=== PATIENT | male | born 1940 | race Caucasian/White ===

== ENCOUNTER 2016-09-20 23:28 | Emergency (ER) | payer MEDICARE, OTHER ==
[~2016-09-20] VITALS: Ht 188 cm; Wt 85.8 kg
[~2016-09-20 23:28] MED LIST: ASCO-296 PO; CHOL200026 PO; GLUC-147 PO; HYDR-3989 PO; LISI10TA7 PO; MAGN200T3 PO; MELA1TAB9 PO; MULT-806 PO; NITR0.4T28 SL; THIO50CA PO; VITA1CAP29 PO; ZINC50TA4 PO
--- OUTSIDE RECORDS SUMMARY | 2016-09-20 23:32 | XMS REPORT | Referral Summary ---
Author Author [facility], Audiology Organization [facility] Address Unknown Phone Unavailable Care Team Providers Care Machine Feeder Name Role Phone Robert Murguia Primary Care Physician [phone] Encounter [facility] [id number] Date(s): 01/14/15 - 01/14/15 [facility] [address] Audiology [address] [place] [address] Discharge Diagnosis: Mixed hearing loss, unilateral Discharge Diagnosis: Sensorineural hearing loss, unilateral Discharge Diagnosis: Eustachian tube dysfunction Discharge Disposition: 01-Home or Self Care Attending Physician: Padmini Daniels Admitting Physician: Padmini Daniels Vital Signs No data available for this section Problem List No data available for this section Allergies, Adverse Reactions, Alerts No Known Medication Allergies Medications lisinopril 10 mg oral tablet 10 mg 1 tabs, Oral, Daily, # 30 tabs, 0 Refill(s) Start Date: 01/14/15 Status: Ordered Results No data available for this section Immunizations No data available for this section Procedures Procedure Date Related Diagnosis Body Site Skin cancer Social History Social History Type Response Smoking Status Never smoker Assessment and Plan No data available for this section
--- OUTSIDE RECORDS SUMMARY | 2016-09-20 23:32 | XMS REPORT | Continuity of Care Document ---
Author Author [facility] Organization [facility] Address Unknown Phone Unavailable Support Name Relationship Address Phone TERE AVITIA MD Caregiver [address] [place] [phone] JUAN GARCIA MD Caregiver [address] [place] [phone] KATHRYN KUMAR Next Of Kin [address] [place] [address] Insurance Providers Payer Name Policy Number Subscriber Name Relationship Medicare [id number] Manny Kumar 18 Self Other A Insurance [id number] Manny Kumar 18 Self Advance Directives Directive Response Recorded Date/Time Advanced Directives Type None 08/23/14 1:23pm Problems Medical Problems Problem Onset Date Status Headache Unknown Active Elevated blood pressure Unknown Active Headache Unknown Active Medications Medication Dose Route Sig Days/Qty Instructions Order Date Discontinued Date Status Aspirin 81 Mg PO DAILY 11/04/12 12/27/12 Discontinued Fish Oil/Granby-3 Fatty Acids 1 Cap PO DAILY 12/27/12 Active Multivitamins 1 Tab PO DAILY 12/27/12 Active Nitroglycerin 0.4 Mg SL NEEDED 12/27/12 Active Glucosamine/D3/Boswellia Malika 1 Each PO DAILY 12/27/12 Active Ascorbic Acid 1,000 Mg PO DAILY 12/27/12 Active Magnesium Unknown Dose PO DAILY 12/30/12 Active Cholecalciferol (Vitamin D3) 5,000 Unit PO DAILY 12/30/12 Active Vitamin T44-Ovogdqnkv Factor 500 Mcg PO DAILY 12/30/12 Active Thioctic Acid 100 Mg PO DAILY 12/30/12 Active Lisinopril 10 Mg PO DAILY 60 Days 08/23/14 Active Pullman Oil/Granby-3 Fatty Acids 1 Cap PO DAILY 08/23/14 Active Social History Social History Problem Response Recorded Date/Time Hx Substance Use No 08/23/2014 1:47pm Hx Alcohol Use No 08/23/2014 1:47pm Has the pt used tobacco in the last 12 months No 12/27/2012 1:12pm Query Response Start Date Stop Date Smoking Status Never smoker Hospital Discharge Instructions No hospital discharge instructions. Plan of Care No plan of care. Functional Status Query Response Date Recorded Physical Hygiene Self August 23, 2014 1:47pm Disabilities Visual August 23, 2014 1:47pm Devices Used Glasses August 23, 2014 1:47pm Dressing Self August 23, 2014 1:47pm Ambulation Self August 23, 2014 1:47pm Diet Self August 23, 2014 1:47pm Mental Status Alert Oriented August 23, 2014 1:47pm Disabilities Visual August 23, 2014 1:47pm Devices Used Glasses August 23, 2014 1:47pm Physical Hygiene Self August 23, 2014 1:47pm Dressing Self August 23, 2014 1:47pm Ambulation Self August 23, 2014 1:47pm Diet Self August 23, 2014 1:47pm Allergies, Adverse Reactions, Alerts Allergen Type Severity Reaction Status Last Updated Iodinated Contrast Media - IV Dye Allergy Unknown HEADACHE, BP CHANGES Active 08/23/14 Immunizations Name Given Type Hx Influenza Vaccination No Historical Hx Pneumococcal Vaccination No Historical Hx Influenza Vaccination No Historical Vital Signs Acute Vital Signs Vital Response Date/Time Temperature (Fahrenheit) 96.6 deg F (96.8 - 99.1) Temperature (Calculated Celsius) 35.65349 degrees C (36.0 - 37.3) Pulse Rate (adult) 60 bpm (60 - 100) Respiratory Rate 20 breaths/min (10 - 20) O2 Sat by Pulse Oximetry 97 % (90 - 100) Blood Pressure 138/64 mm Hg Height 6 ft 2 in Weight 192 lb Body Mass Index 24.0 kg/m^2 Results Test Source Date Result Interp. Ref. Range Comments Activated Partial Thromboplast Time March 12, 2009 7:35am 28.5 SEC N 25-36 Alanine Aminotransferase (ALT/SGPT) August 23, 2014 2:05pm 31 U/L N 21 -72 Albumin August 23, 2014 2:05pm 4.3 G/DL N 3.5-5.0 Albumin/Globulin Ratio August 23, 2014 2:05pm 1.4 RATIO N 1.1-2.2 Alkaline Phosphatase August 23, 2014 2:05pm 74 U/L N 38-126 Anion Gap August 23, 2014 2:05pm 10 MEQ/L N 5-15 Aspartate Amino Transf (AST/SGOT) August 23, 2014 2:05pm 23 U/L N 17- 59 BUN/Creatinine Ratio August 23, 2014 2:05pm 19 RATIO N 6-26 Basophils # (Auto) August 23, 2014 2:05pm 0.0 T/MM3 N 0-0.2 Basophils (%) (Auto) August 23, 2014 2:05pm 0.5 % N 0-2 Blood Urea Nitrogen August 23, 2014 2:05pm 21.0 MG/DL H 9-20 Calcium Level August 23, 2014 2:05pm 9.5 MG/DL N 8.4-10.2 Calculated Osmolality August 23, 2014 2:05pm 276 MOSM/KG N 261-280 Carbon Dioxide Level August 23, 2014 2:05pm 28 MEQ/L N 22-30 Carboxyhemoglobin November 04, 2012 4:40am 0.0 % L 0.5-1.5 NORMAL RANGESNONSMOKERS:0.5-1.5% SMOKERS, 1-2 PKS/D 4-5% SMOKERS, >2 PKS/D 8/9% TOXIC: >20% Chemistry Specimen Hemolysis August 23, 2014 2:05pm < 15 0-25 0-25 : No Hemolysis.26-70: Slight Hemolysis - can falsely elevate K and Urine Protein. 71-285: Moderate Hemolysis - can falsely elevate K, Troponin I, CA 19-9, PTH, CSF GLucose, and Urine Protein, and can falsely decrease Phenytoin. 286-999: Gross Hemolysis - can falsely elevate K, Troponin I, CA 19-9, PTH, CSF Glucose, and Urine Protine, and can falsely decrease Phenytoin. Recommend specimen recollection. Chloride Level August 23, 2014 2:05pm 104 MEQ/L N 98-107 Cholesterol Level March 12, 2009 7:35am 176 MG/DL N 132-199 Cholesterol/HDL Ratio March 12, 2009 7:35am 2.0 RATIO N 0-5.0 Creatinine August 23, 2014 2:05pm 1.1 MG/DL N 0.8-1.5 EKG March 12, 2009 7:40am Complete - Eosinophils # (Auto) August 23, 2014 2:05pm 0.1 T/MM3 N 0-0.5 Eosinophils (%) (Auto) August 23, 2014 2:05pm 1.1 % N 0-4 Globulin August 23, 2014 2:05pm 3.1 G/DL N 2.4-3.6 Glomerular Filtration Rate Calc August 23, 2014 2:05pm 65 - Glucose Level August 23, 2014 2:05pm 93 MG/DL N 75-110 HDL Cholesterol Direct March 12, 2009 7:35am 63 MG/DL H 40-60 Hematocrit August 23, 2014 2:05pm 42.2 % N 41-53 Hemoglobin August 23, 2014 2:05pm 14.5 GM/DL N 13.5-17.5 Icterus Index August 23, 2014 2:05pm < 2 0-7 Immature Granulocyte # (Auto) August 23, 2014 2:05pm 0.01 T/MM3 N 0.00 -0.03 Immature Granulocyte % (Auto) August 23, 2014 2:05pm 0.2 % N 0.0-0.5 LDL Cholesterol, Calculated March 12, 2009 7:35am 100.4 N 66-159 Lab Scanned Report December 26, 2012 11:58pm LAB TEST FORM REQUEST [id number] - Lymphocytes # (Auto) August 23, 2014 2:05pm 1.7 T/MM3 N 1-4.8 Lymphocytes (%) (Auto) August 23, 2014 2:05pm 27.9 % N 23-45 Mean Corpuscular Hemoglobin August 23, 2014 2:05pm 32.2 UUG N 26-34 Mean Corpuscular Hemoglobin Concent August 23, 2014 2:05pm 34.4 GM/DL N 31-37 Mean Corpuscular Volume August 23, 2014 2:05pm 93.6 UM3 N 80-100 Mean Platelet Volume August 23, 2014 2:05pm 10.0 UM3 N 9.4-12.4 Monocytes # (Auto) August 23, 2014 2:05pm 0.6 T/MM3 N 0-0.8 Monocytes (%) (Auto) August 23, 2014 2:05pm 10.4 % H 0-9.0 Neutrophils # (Auto) August 23, 2014 2:05pm 3.7 T/MM3 N 1.8-7.7 Neutrophils (%) (Auto) August 23, 2014 2:05pm 59.9 % N 33-66 Platelet Count August 23, 2014 2:05pm 185 T/MM3 N 130-400 Potassium Level August 23, 2014 2:05pm 3.9 MEQ/L N 3.6-5 Prothromb Time International Ratio March 12, 2009 7:35am 0.88 N 0.79 -1.23 THERAPUTIC RANGE=2.00-3.00 FOR ANTI-THROMBOSIS THERAPUTIC RANGE=2.50- 3.50 FOR IMPLANTED VALVE RDW Standard Deviation August 23, 2014 2:05pm 42.8 FL N 36.9-50.2 Red Blood Count August 23, 2014 2:05pm 4.51 M/MM3 N 4.50-5.90 Sodium Level August 23, 2014 2:05pm 142 MEQ/L N 134-144 Total Bilirubin August 23, 2014 2:05pm 0.50 MG/DL N 0.20-1.30 Total Protein August 23, 2014 2:05pm 7.4 G/DL N 6.3-8.2 Triglycerides Level March 12, 2009 7:35am 63 MG/DL N 40-160 Troponin I 2012 12:53pm < 0.012 ng/ml 0-0.12 FAX TO [phone] Turbidity August 23, 2014 2:05pm < 20 0-20 VLDL Cholesterol March 12, 2009 7:35am 12.6 MG/DL N 0-28 White Blood Count August 23, 2014 2:05pm 6.1 T/MM3 N 4.5-11.0 Procedures No known history of procedures. Encounters Encounter Location Date/Time Departed Emergency Room [facility] 08/23/14 1:19pm Recent Diagnosis
--- OUTSIDE RECORDS SUMMARY | 2016-09-20 23:32 | XMS REPORT | Referral Summary ---
Author Author [facility], Otolaryngology Organization [facility] Address Unknown Phone Unavailable Care Team Providers Care Handle Machine Operator Name Role Phone ShantalRobert Primary Care Physician [phone] Encounter [facility] [id number] Date(s): 08/02/15 - 08/02/15 [facility] [address] Otol[facility]ology [address] [address] Discharge Diagnosis: Bilateral sensorineural hearing loss Discharge Diagnosis: History of Eustachian tube dysfunction Discharge Disposition: 01-Home or Self Care Attending Physician: Macario Rodriguez MD Admitting Physician: Macario Rodriguez MD Vital Signs No data available for this [...] Smoking Status Never smoker Assessment and Plan Extracted from: Title: Office Visit Note Author: Macario Rodriguez MD Date: 08/02/15 Assessment/Plan 1.History of Eustachian tube dysfunction Left tympanostomy tube remains in position and is patent. Tube could be rechecked in 4-6 months. Ordered: Office Visit Level 3 Est 98811 2.Bilateral sensorineural hearing loss Patient would benefit from trial of amplification but is not interested atthis time. Ordered: Office Visit Level 3 Est 73390
--- OUTSIDE RECORDS SUMMARY | 2016-09-20 23:32 | XMS REPORT | Referral Summary ---
Author Author [facility] Organization [facility] Address Unknown Phone Unavailable Care Team Providers Care Port Steward Name Role Phone Robert Murguia Primary Care Physician [phone] Encounter [facility] [id number] Date(s): 01/29/15 - 01/29/15 [facility] [address] Otol[facility]ology [address] [place] [address] Discharge Diagnosis: ETD (eustachian tube dysfunction) Discharge Diagnosis: Bilateral sensorineural hearing loss Discharge Disposition: 01-Home or Self Care Attending Physician: Salome Alston Admitting Physician: Salome Alston Vital Signs No data available for this [...]
--- OUTSIDE RECORDS SUMMARY | 2016-09-20 23:33 | XMS REPORT | Continuity of Care Document ---
Author Author [facility] Organization [facility] Address Unknown Phone Unavailable Allergies Active Description Code Type Severity Reaction Onset Reported/Identified Relationship to Patient Clinical Status Yes No Known Medication Allergies NKMA N/A N/A 01/14/2015 Medications Problems Procedures Results Encounters ACCT No. Visit Date/Time Discharge Status Pt. Type Provider Facility Loc./Unit Complaint [id number] 01/29/2015 14:19:00 2014 23:59:00 DIS Outpatient Salome Alston Via [facility] ENT RCK EARS [id number] 01/14/2015 15:28:00 2014 23:59:00 DIS Outpatient Padmini Daniels Via [facility] Audio Padmini - Medicare - Jennifer [id number] 01/14/2015 12:37:00 2014 23:59:00 DIS Outpatient Macario Rodriguez Via [facility] ENT EAR ACHES
--- OUTSIDE RECORDS SUMMARY | 2016-09-20 23:33 | XMS REPORT | Referral Summary ---
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
--- OUTSIDE RECORDS SUMMARY | 2016-09-20 23:33 | XMS REPORT | Referral Summary ---
Author Author [facility] Organization [facility] Address Unknown Phone Unavailable Care Team Providers Care Wheat Shipper Name Role Phone Robert Murguia Primary Care Physician [phone] Encounter [facility] [id number] Date(s): 01/14/15 - 01/14/15 [facility] [address] Otol[facility]ology [address] [place] [address] Discharge Diagnosis: Bilateral sensorineural hearing loss Discharge Diagnosis: Dysfunction of left Eustachian tube Discharge Disposition: 01-Home or Self Care Attending Physician: Macario Rodriguez MD Admitting Physician: Macario Rodriguez MD Referring Physician: Saran Murguia MD Vital Signs Most recent to 1 oldest [Reference Range]: Temperature Tympanic 36.7 degC [36.6-38.1 degC] (01/14/15 1:13 PM) Problem List No data available for this section Allergies, Adverse Reactions, Alerts No Known Medication Allergies Medications lisinopril 10 mg oral tablet 10 mg 1 tabs, Oral, Daily, # 30 tabs, 0 Refill(s) Start Date: 01/14/15 Status: Ordered Results No data available for this section Immunizations No data available for this section Procedures Procedure Date Related Diagnosis Body Site Laryngoscopy, flexible fiberoptic; diagnostic 01/14/15 Laryngoscopy, flexible fiberoptic; diagnostic 01/14/15 Laryngoscopy, flexible fiberoptic; diagnostic 01/14/15 Tympanostomy (requiring insertion of 01/14/15 ventilating tube), local or topical anesthesia.. Tympanostomy (requiring insertion of 01/14/15 ventilating tube), local or topical anesthesia.. Tympanostomy (requiring insertion of 01/14/15 ventilating tube), local or topical anesthesia.. Skin cancer Social History Social History Type Response Smoking Status Never smoker Assessment and Plan Extracted from: Title: Office Visit Note Author: Macario Rodriguez MD Date: 01/14/15 Assessment/Plan 1.Bilateral sensorineural hearing loss Patient does have significant bilateral sensorineural hearing loss and would benefit from trial of amplification. Patient can report back for follow-up examination and audiogram in 2 weeks to ensure that left conductive hearing loss is gone. He should undergo amplification fitting. Ordered: Laryngoscopy, Flexible Fiberoptic; Diagnostic 16779 Office Visit Level 3 New 48962 Tympanostomy (Requiring Insertion Of Ventilating Tube), Local Or Topical Anesthesia 46918 2.Dysfunction of left Eustachian tube This is been treated as mentioned above. Patient was instructed on follow-up. Ordered: Laryngoscopy, Flexible Fiberoptic; Diagnostic 23817 Office Visit Level 3 New 21996 Tympanostomy (Requiring Insertion Of Ventilating Tube), Local Or Topical Anesthesia 99785
[2016-09-20 23:35] VITALS: TEMP 97.6; Ht 188 cm; Wt 85.8 kg
[2016-09-20] MEDS ORDERED: LABETALOL 100mg/20ml INJECTION IV ONE (23:45)
--- NOTE | 2016-09-21 00:08 | ERPDOC ---
Departure Disposition Decision Date: Sep 21, 2016 Disposition Decision Time: 01:39 Disposition: 01 DISCHARGED HOME, SELF-CARE Impression Impression Impression: Primary Impression: Hypertensive urgency Severity: Severe Condition: Improved Seen By: Physician only Referrals: SARAN ISLAS MD (Family) Patient Instructions: Hypertension (ED) Problems/Meds/Labs Reviewed?: Yes Medications reviewed and manag: Yes Additional Instructions: Lisinopril 10 mg one tablet daily See your doctor in 2-7 days Follow up care ordered?: Yes Mental Status: Alert Scripts Lisinopril (Lisinopril) 10 Mg Tablet 10 MG PO DAILY, #30 TAB Prov: BLANE SÁNCHEZ MD 09/21/16 HPI - General Medical General Chief Complaint: Hypertension Stated Complaint: HIGH BLOOD PRESSURE Time Seen by Provider: 23:31 Source: patient, family Exam Limitations: no limitations HPI - General Medical Initial Comments Pt has had several episodes tonight of transient variable paraesthesias involving his tongue, lips, face, and neck at different times. Pt has had at least two prior episodes of the same associated with elevated blood pressures. He has been on Lisinopril 10mg in the past but is not taking it since "things worked themselves out." Pt has no CAD, TN, CVA hx. Occurred At: home Duration: 4-6 hrs Severity: moderate Associated Symptoms: DENIES: cough, diaphoresis, fever/chills, headaches, loss of appetite, malaise, nausea/vomiting, rash, seizure, shortness of breath, syncope, weakness Hx of Similar Symptoms: Yes Allergies: Coded Allergies: Iodinated Contrast Media - Oral and (Verified Allergy, Unknown, HEADACHE, BP CHANGES, 09/21/16) Past History Patient Surgical History 1. Left tympanostomy tube placement--2014 by an ENT in [place]. 2. Colonoscopy with polypectomy--04/01/[address] Saran Islas. 3. 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 Gela Pantoja. 4. Upper blepharoplasty--12/30/[address] Gela Pantoja. 5. Right cataract removal--2010. 6. Hemorrhoidectomy--09/15/[address] David Zaldivar. 7. Total colonoscopy--08/13/[address] David Zaldivar. 8. Right knee arthroscopy with partial medial meniscectomy--09/13/00. 9. Cardiac catheterization--03/[address] Danilo Lees. Catheterization was reportedly normal. 10. Removal of benign cyst of the back of the neck--age 38. Past Medical History Metabolic: hypertension Musculoskeletal: osteoarthritis Surgical History General: colonoscopy Surgical History Comments arthroscopy Hemorrhoidectomy Blepharoplasty Cataract Cyst removal on the back Vaccines Hx Influenza Vaccination: No Hx Pneumococcal Vaccination: No Social History Smoking Status: Never smoker Does patient use chewing tobac: No Second Hand Exposure: No Substance Use Type: does not use Alcohol Intake: none Record Review Pertinent history updated: Yes Review of Systems Constitutional Constitutional: DENIES: appetite decrease, appetite increase, chills, dizziness , fever, weakness ENMT Ears: DENIES: pain Hearing: DENIES: hearing loss, tinnitus Balance: DENIES: vertigo Mouth/Throat: DENIES: change in swallowing, change in voice, hoarsness, painful swallowing, sore throat Cardiovascular Cardiac: DENIES: chest pain, dyspnea on exertion Rhythm/Rate: DENIES: irregular beat, palpitations, tachycardia Vascular: DENIES: pedal edema Pulmonary Respiratory: DENIES: cough, dyspnea, pleuritic chest pain GI Upper Abdomen: DENIES: dysphagia, heartburn/indigestion, nausea, pain, vomiting Lower Abdomen: DENIES: blood in stool, constipation, diarrhea, pain General: DENIES: burning, dysuria, frequency, pain, urgency Musculoskeletal General: DENIES: cramps, joint pain, joint swelling, pain, weakness Integumentary Skin: DENIES: rash, sores Neurological General: DENIES: headache, numbness, tingling, vertigo, weakness Comments transient migrating paraesthesias Psychiatric Psychiatric: DENIES: anxiety, depression, nervousness Physical Exam General General Nourishment: well nourished, well developed, appears stated age, no acute distress General Body Habitus: well groomed Vitals and Pain First Documented Vital Signs Date Time Temp Pulse Resp B/P Pulse Ox O2 Delivery O2 Flow Rate FiO2 09/20/16 23:35 97.6 59 12 215/98 98 Room Air Weight: Kilograms: Height (feet): 6 Height (inches): 2.00 Triage Pain Scale: RN VS reviewed by Provider: Yes Comments Patient's initial vital signs show significantly elevated blood pressure Normal Exams: Head: Normocephalic w/o trauma Eyes: Pupils are PERRLA w/ EOMI, No scleral icterus, irritation, or foreign bodies noted ENMT: No facial trauma, nasal exudates, pharyngeal erythema, or exudates are noted Neck: Full range of motion, without adenopathy, JVD, bruits or thyromegaly Chest/Resp: Clear all contreras, with good airflow, and symmetry bilaterally CV: Regular rate and rhythm, without murmur or gallop, Pulses 2+ all extremities, capillary refill, <2 seconds all ext., no pedal edema noted Abdomen: Bowel sounds positive, soft, non-tender, non-distended, no hepatosplenomegaly, masses or bruits noted Lymphatic: No lymphadenopathy, or lymphedema noted Musculoskeletal: No tenderness, or deformity noted, good range of motion, all extremities Integumentary: No rashes, hives, or bruising noted, hair and nails, without abnormality Neurologic: Patient is alert, and oriented, cranial nerves, motor/sensory/ cerebellar, exams w/o gross deficits, to observation Psychiatric: Patient exhibits, appropriate attention, emotion and affect Neurologic (brief) Neurological Brief: FOUND: CN w/o gross def to obs, DTR 2/4 all extremities, gait w/o gross def to obs, motor-no gross deficits, sensory-no gross deficits, NOT FOUND: ataxia Progress Results/Orders Orders Procedure Category Date Status Time Iv Lock (Ed Only) EDM 09/20/16 Transmitted 23:44 Cbc W/Auto LAB 09/20/16 Complete Diff-Reflex Manual Cmp - Comprehensive LAB 09/20/16 Complete Metabolic Troponin I W LAB 09/20/16 Complete Hemolysis Index EKG EKG 09/20/16 Taken Labetalol (Trandate) PHA 09/20/16 Complete 23:45 Ua, Dip Wreflex LAB 09/20/16 Complete Microsc & Reporter Anchor 23:53 Ct Head W/O Contrast CT 09/21/16 Logged 00:20 Lab Results Laboratory Tests Test 09/20/16 23:56 09/20/16 23:57 White Blood Count 7.6T/MM3 Red Blood Count 4.42M/MM3 Hemoglobin 14.5GM/DL Hematocrit 41.7% Mean Corpuscular Volume 94.3UM3 Mean Corpuscular Hemoglobin 32.8UUG Mean Corpuscular Hemoglobin Concent 34.8GM/DL RDW Standard Deviation 42.9FL Platelet Count 191T/MM3 Mean Platelet Volume 10.3UM3 Immature Granulocyte % (Auto) 0.1% Neutrophils (%) (Auto) 53.1% Lymphocytes (%) (Auto) 34.7% Monocytes (%) (Auto) 9.3% Eosinophils (%) (Auto) 2.4% Basophils (%) (Auto) 0.4% Absolute Immature Granulocyte (auto 0.01T/MM3 Absolute Neutrophils (auto) 4.0T/MM3 Absolute Lymphocytes (auto) 2.6T/MM3 Absolute Monocytes (auto) 0.7T/MM3 Absolute Eosinophils (auto) 0.2T/MM3 Absolute Basophils (auto) 0.0T/MM3 Turbidity < 20 Sodium Level 144MEQ/L Potassium Level 3.8MEQ/L Chloride Level 107MEQ/L Carbon Dioxide Level 26MEQ/L Anion Gap 11MEQ/L Blood Urea Nitrogen 19.0MG/DL Creatinine 0.9MG/DL Glomerular Filtration Rate Calc 82 BUN/Creatinine Ratio 21RATIO Glucose Level 88MG/DL Calculated Osmolality 278MOSM/KG Calcium Level 9.3MG/DL Total Bilirubin 0.80MG/DL Icterus Index < 2 Aspartate Amino Transf (AST/SGOT) 29U/L Alanine Aminotransferase (ALT/SGPT) 34U/L Alkaline Phosphatase 84U/L Troponin I < 0.012ng/ml Total Protein 7.6G/DL Albumin 4.3G/DL Globulin 3.3G/DL Albumin/Globulin Ratio 1.3RATIO Chemistry Specimen Hemolysis < 15 Urine Collection Type Cleancatch-midstream Urine Color Yellow Urine Turbidity Clear Urine pH 5.0 Urine Specific Seth 1.015 Urine Protein Negative Urine Glucose (UA) Negative Urine Ketones Negative Urine Blood Negative Urine Nitrite Negative Urine Bilirubin Negative Urine Urobilinogen 0.2EU/DL Urine Leukocyte Esterase Negative Urinalysis Comment Microscopic not ind. Medications Current ED Medications Labetalol HCl (Trandate) 20 mg O ONCE IV Last administered on 09/21/16 00:07 ; Start 09/20/16 at 23:45; Stop 09/20/16 at 23:48; Status DC Progress Progress Patient given labetalol 20 mg IV - blood pressure normalized, the patient's symptoms resolved EKG shows normal sinus rhythm without ischemia, ectopy, or infarction UA - n CBC - n CMP - N CT head - n Hypertensive urgency BLANE SÁNCHEZ MD Sep 21, 2016 00:08
[2016-09-21 00:10] LABS: BLOOD, URINE NEGATIVE (NEGATIVE); COLOR,URINE YELLOW (YELLOW); LEUKOCYTE ESTERASE ,URINE NEGATIVE (NEGATIVE); NITRITE,URINE NEGATIVE (NEGATIVE); UROBILINOGEN,URINE 0.2 EU/DL (NORMAL)
[2016-09-21 00:11] LABS: BASOPHILS % (AUTO) 0.4 % (0-2); EOSINOPHILS # (AUTO) 0.2 T/MM3 (0-0.5); EOSINOPHILS % (AUTO) 2.4 % (0-4); HCT - HEMATOCRIT 41.7 % (41-53); HGB - HEMOGLOBIN 14.5 GM/DL (13.5-17.5); IMMATURE GRANULOCYTE # (AUTO) 0.01 T/MM3 (0.00-0.03); IMMATURE GRANULOCYTE % (AUTO) 0.1 % (0.0-0.5); LYMPHOCYTES # (AUTO) 2.6 T/MM3 (1-4.8); LYMPHOCYTES % (AUTO) 34.7 % (23-45); MEAN CORPUSCULAR HGB 32.8 UUG (26-34); MEAN CORPUSCULAR HGB CONC(MCHC 34.8 GM/DL (31-37); MEAN CORPUSCULAR VOLUME 94.3 UM3 (80-100); MEAN PLATELET VOLUME 10.3 UM3 (9.4-12.4); MONOCYTES # (AUTO) 0.7 T/MM3 (0-0.8); MONOCYTES % (AUTO) 9.3 % (0-9.0); NEUTROPHILS % (AUTO) 53.1 % (33-66); RED BLOOD COUNT 4.42 M/MM3 (4.50-5.90); WBC - WHITE BLOOD COUNT 7.6 T/MM3 (4.5-11.0)
[2016-09-21] MEDS ORDERED: TURM500C8 (00:15)
[2016-09-21 00:21] LABS: ALBUMIN 4.3 G/DL (3.5-5.0); ALBUMIN/GLOBULIN RATIO 1.3 RATIO (1.1-2.2); ALKALINE PHOSPHATASE 84 U/L (38-126); ALT (SGPT) 34 U/L (21-72); ANION GAP 11 MEQ/L (5-15); AST (SGOT) 29 U/L (17-59); BUN/CREATININE RATIO 21 RATIO (6-26); CALCIUM 9.3 MG/DL (8.4-10.2); CHLORIDE 107 MEQ/L (98-107); CO2 - CARBON DIOXIDE 26 MEQ/L (22-30); CREATININE 0.9 MG/DL (0.8-1.5); GLOMERULAR FILTRATION RATE 82; GLUCOSE 88 MG/DL (75-110); POTASSIUM 3.8 MEQ/L (3.6-5); SODIUM 144 MEQ/L (134-144); TOTAL PROTEIN 7.6 G/DL (6.3-8.2)
--- NOTE | 2016-09-21 00:36 | NUR ---
BACK FROM CT
--- NOTE | 2016-09-21 01:15 | NUR ---
STATUS PT IS RESTING IN BED, NO S/S OF ACUTE DISTRESS, NO COMPLAINTS OR NEEDS.
[2016-09-21] MEDS ORDERED: LISI10TA7 PO (01:41)
[2016-09-21 02:03] VITALS: BP 151/74; PULSE 52; RESP 16; O2SAT 96
--- NOTE | 2016-09-21 02:03 | NUR ---
DEPART PT IS DISCHARGED AT THIS TIME, INSTRUCTIONS ARE REVIEWED AND UNDERSTANDING IS VOICED. PT LEAVES AMBULATORY WITH HIS . PT DENIES ANY WEISS AT THIS TIME.
--- OUTSIDE RECORDS SUMMARY | 2016-09-21 02:16 | XMS REPORT | Continuity of Care Document ---
Author Author [facility] Organization [facility] Address Unknown Phone Unavailable Allergies Active Description Code Type Severity Reaction Onset Reported/Identified Relationship to Patient Clinical Status Yes No Known Medication Allergies NKMA N/A N/A 01/14/2015 Medications Problems Procedures Results Encounters ACCT No. Visit Date/Time Discharge Status Pt. Type Provider Facility Loc./Unit Complaint [id number] 01/29/2015 14:19:00 2014 23:59:00 DIS Outpatient Salome Alston [facility] ENT RCK EARS [id number] 01/14/2015 15:28:00 2014 23:59:00 DIS Outpatient Padmini Daniels [facility] Audio Padmini - Medicare - Jennifer [id number] 01/14/2015 12:37:00 2014 23:59:00 DIS Outpatient Macario Rodriguez [facility] ENT EAR ACHES
--- OUTSIDE RECORDS SUMMARY | 2016-09-21 02:16 | XMS REPORT | Continuity of Care Document ---
Author Author [facility] Organization [facility] Address Unknown Phone Unavailable Support Name Relationship Address Phone TERE AVITIA MD Caregiver [address] [place] [phone] JUAN GARCIA MD Caregiver [address] [place] [phone] KATHRYN KUMAR Next Of Kin [address] [place] [address] Insurance Providers Payer Name Policy Number Subscriber Name Relationship Medicare [id number] Manny Kumar 18 Self Other A Insurance [id number] Manny Kumar 18 Self Advance Directives Directive Response Recorded Date/Time Advanced Directives Type None 08/23/14 1:23pm Problems Medical Problems Problem Onset Date Status Headache Unknown Active Elevated blood pressure Unknown Active Headache Unknown Active Medications Medication Dose Route Sig Days/Qty Instructions Order Date Discontinued Date Status Aspirin 81 Mg PO DAILY 11/04/12 12/27/12 Discontinued Fish Oil/Cherry [place]-3 Fatty Acids 1 Cap PO DAILY 12/27/12 Active Multivitamins 1 Tab PO DAILY 12/27/12 Active Nitroglycerin 0.4 Mg SL NEEDED 12/27/12 Active Glucosamine/D3/Boswellia Malika 1 Each PO DAILY 12/27/12 Active Ascorbic Acid 1,000 Mg PO DAILY 12/27/12 Active Magnesium Unknown Dose PO DAILY 12/30/12 Active Cholecalciferol (Vitamin D3) 5,000 Unit PO DAILY 12/30/12 Active Vitamin N36-Cxwnzbkzu Factor 500 Mcg PO DAILY 12/30/12 Active Thioctic Acid 100 Mg PO DAILY 12/30/12 Active Lisinopril 10 Mg PO DAILY 60 Days 08/23/14 Active Jansen Oil/Cherry [place]-3 Fatty Acids 1 Cap PO DAILY 08/23/14 [...] F (96.8 - 99.1) Temperature (Calculated Celsius) 35.41969 degrees C (36.0 - 37.3) Pulse Rate [...] 26, 2012 11:58pm LAB TEST FORM REQUEST [id number] - Lymphocytes # (Auto) August 23, 2014 [...] 12:53pm < 0.012 ng/ml 0-0.12 FAX TO [phone] Turbidity August 23, 2014 2:05pm < 20 0-20 VLDL Cholesterol March 12, 2009 7:35am 12.6 MG/DL N 0-28 White Blood Count August 23, 2014 2:05pm 6.1 T/MM3 N 4.5-11.0 Procedures No known history of procedures. Encounters Encounter Location Date/Time Departed Emergency Room [facility] 08/23/14 1:19pm Recent Diagnosis
--- NOTE | 2016-09-21 08:12 | DI ---
Indication: ITS.REASON: paresthesias with hypertension PROCEDURE: CT HEAD W/O CONTRAST: Encounter: Initial Comparison: August 23, 2014 Technique: Axial CT images through the head were performed without contrast. Iterative Reconstruction dose reducing technique was utilized. FINDINGS: The ventricles are of normal size, shape, and contour for the patient's age. There are scattered areas of low attenuation in the white matter which most likely represent changes from chronic microvascular ischemia. The brainstem, cerebellum, and cerebral hemispheres otherwise have a normal morphology and CT attenuation. There is no evidence of midline displacement. No hemorrhage, signs of acute territorial stroke, mass effect, mass lesions, or edema is evident. The visualized portions of the skull base, midface, and calvarium demonstrate no abnormality. Mild sinus disease. The tympanic and mastoid cavities appear normal. IMPRESSION: No acute intracranial abnormality or hemorrhage. There is a preliminary report by virtual radiologic. .
== END 2016-09-21 02:03 | disposition home or self-care (01) ==
LOC: ED 23:28
DX: I16.0 Hypertensive urgency (principal)
CPT/HCPCS: 80053; 81003; 84484; 85025; 93005

== ENCOUNTER 2016-09-29 08:56 | Emergency (ER) | payer MEDICARE, OTHER ==
[~2016-09-29] VITALS: Ht 188 cm; Wt 85.4 kg
[~2016-09-29 08:56] MED LIST changes: -CHOL200026 PO; -HYDR-3989 PO; -MAGN200T3 PO; -THIO50CA PO; +TURM500C8; -VITA1CAP29 PO; -ZINC50TA4 PO
--- OUTSIDE RECORDS SUMMARY | 2016-09-29 08:59 | XMS REPORT | Continuity of Care Document ---
Author Author [facility] Organization [facility] Address Unknown Phone Unavailable Support Name Relationship Address Phone TERE AVITIA MD Caregiver [address] [place] [phone] JUAN GARCIA MD Caregiver [address] [phone] KATHRYN KUMAR Next Of Kin [address] [place] [address] Insurance Providers Payer Name Policy Number Subscriber Name Relationship Medicare [id number] Manny Kumar 18 Self Other A Insurance [id number] Manny Kumar 18 Self Advance Directives Directive Response Recorded Date/Time Advanced Directives Type None 08/23/14 1:23pm Problems Medical Problems Problem Onset Date Status Headache Unknown Active Elevated blood pressure Unknown Active Headache Unknown Active Medications Medication Dose Route Sig Days/Qty Instructions Order Date Discontinued Date Status Aspirin 81 Mg PO DAILY 11/04/12 12/27/12 Discontinued Fish Oil/Greenleaf-3 Fatty Acids 1 Cap PO DAILY 12/27/12 Active Multivitamins 1 Tab PO DAILY 12/27/12 Active Nitroglycerin 0.4 Mg SL NEEDED 12/27/12 Active Glucosamine/D3/Boswellia Malika 1 Each PO DAILY 12/27/12 Active Ascorbic Acid 1,000 Mg PO DAILY 12/27/12 Active Magnesium Unknown Dose PO DAILY 12/30/12 Active Cholecalciferol (Vitamin D3) 5,000 Unit PO DAILY 12/30/12 Active Vitamin U48-Nvftfeluo Factor 500 Mcg PO DAILY 12/30/12 Active Thioctic Acid 100 Mg PO DAILY 12/30/12 Active Lisinopril 10 Mg PO DAILY 60 Days 08/23/14 Active [place] Oil/Greenleaf-3 Fatty Acids 1 Cap PO DAILY 08/23/14 [...] F (96.8 - 99.1) Temperature (Calculated Celsius) 35.09342 degrees C (36.0 - 37.3) Pulse Rate [...] 26, 2012 11:58pm LAB TEST FORM REQUEST [id number] - Lymphocytes # (Auto) August 23, 2014 [...] 12:53pm < 0.012 ng/ml 0-0.12 FAX TO [phone] Turbidity August 23, 2014 2:05pm < 20 0-20 VLDL Cholesterol March 12, 2009 7:35am 12.6 MG/DL N 0-28 White Blood Count August 23, 2014 2:05pm 6.1 T/MM3 N 4.5-11.0 Procedures No known history of procedures. Encounters Encounter Location Date/Time Departed Emergency Room [facility] 08/23/14 1:19pm Recent Diagnosis
--- OUTSIDE RECORDS SUMMARY | 2016-09-29 08:59 | XMS REPORT | Continuity of Care Document ---
Author Author [facility] Organization [facility] Address Unknown Phone Unavailable Allergies Active Description Code Type Severity Reaction Onset Reported/Identified Relationship to Patient Clinical Status Yes No Known Medication Allergies NKMA N/A N/A 01/14/2015 Medications Problems Procedures Results Encounters ACCT No. Visit Date/Time Discharge Status Pt. Type Provider Facility Loc./Unit Complaint [id number] 01/29/2015 14:19:00 2014 23:59:00 DIS Outpatient Salome Alston [facility] ENT RCK EARS [id number] 01/14/2015 15:28:00 2014 23:59:00 DIS Outpatient Padmini Daniels [facility] Audio Padmini - Medicare - Jennifer [id number] 01/14/2015 12:37:00 2014 23:59:00 DIS Outpatient Macario Rodriguez [facility] ENT EAR ACHES
[2016-09-29 09:00] VITALS: Ht 188 cm; Wt 85.4 kg
--- OUTSIDE RECORDS SUMMARY | 2016-09-29 09:00 | XMS REPORT | Continuity of Care Document ---
Author Author [facility] Organization [facility] Address Unknown Phone Unavailable Support Name Relationship Address Phone BLANE SÁNCHEZ MD Caregiver [address] [place] [address] Unavailable TESSIE ISLSA MD Caregiver [address] [place] [address] Unavailable KATHRYN KUMAR Next Of Kin [address] [place], [place] [id number] Insurance Providers Guarantor Manny Kumar Address [address] [place] [address] Email [email or web address] Payer Medicare Policy Number [id number] Subscriber's Name Manny Kumar Relationship 18 Self Effective Date 05 Payer Other A Insurance Policy Number [id number] Subscriber's Name Manny Kumar Relationship 18 Self Group Number [id number] Advance Directives Directive Response Recorded Date/Time Advanced Directives Type None 09/20/16 11:35pm Chief Complaint and Reason for Visit Chief Complaint Hypertension Reason for Visit Hypertensive urgency Problems Active Problems Medical Problem Onset Date Status Elevated blood pressure Unknown Acute Headache Unknown Acute Headache Unknown Acute Right inguinal hernia Unknown Acute Past Problems Medical Problem Onset Date Hypertensive urgency Unknown Medications Current Home Medications Medication Dose Units Route Directions Days Qty Instructions Start Date Ascorbic Acid (Vitamin C) 500 Mg Tablet 1,000 Mg Oral Daily 12/27 Glucosamine/D3/Boswellia Malika (Osteo Bi-Flex Caplet) 1 Each Tablet 1 Each Oral Daily 12/27/12 Lisinopril 10 Mg Tablet 1 Tab Oral Daily 08/05/15 Lisinopril 10 Mg Tablet 10 Mg Oral Daily 30 Tablet 09/21/16 Melatonin/Pyridoxine (Melatonin 3 Mg Tablet) 1 Each Tablet 1 Tab Oral Bedtime 03/31/15 Multivitamins (Multivitamin) 1 Tab Tablet 1 Tab Oral Daily Nitroglycerin (Nitrostat) 0.4 Mg Tab.subl 0.4 Mg Sublingual As Needed 12/27/12 Turmeric Root Extract (Turmeric) 500 Mg Capsule Unknown Dose 09/21/16 Past Home Medications Medication Directions Ordered Status Aspirin 81 Mg Tablet., 81 Mg Oral Daily 11/04/12 Discontinued Social History Social History Problem Response Recorded Date/Time Onset Date Status Chewing Tobacco Status No 09/21/2016 12:16am Not Applicable Not Applicable Hx Substance Use No 09/21/2016 12:16am Not Applicable Not Applicable Hx Alcohol Use No 09/21/2016 12:16am Not Applicable Not Applicable Has the pt used tobacco in the last 12 months No 12/27/2012 1:12pm Not Applicable Not Applicable Query Response Start Date Stop Date Smoking Status Never smoker Hospital Discharge Instructions No hospital discharge instructions. Plan of Care Discharge Date 09/21/16 2:03am Disposition 01 DISCHARGED HOME, SELF-CARE Condition at Discharge Improved Instructions/Education Provided Hypertension (ED) Prescriptions See Medication Section Referrals TESSIE ISLAS MD Address: [address] [place] [address] [place] [address] Additional Instructions/Education Lisinopril 10 mg one tablet daily See your doctor in 2-7 days Care Plan and Goals Physician Care Plan Problem: High blood pressure/hypertensive urgency Goal: Follow up with primary care provider Instructions: Take medications and follow care plan as discussed/written Lisinopril 10 mg one tablet daily See your doctor in 2-7 days Functional Status No functional status results. Allergies, Adverse Reactions, Alerts Allergen Type Severity Reaction Status Last Updated Iodinated Contrast Media - Oral and Allergy Unknown HEADACHE, BP CHANGES Active 09/21/16 Immunizations Query Response on File Recorded Date/Time Hx Influenza Vaccination No 03/31/15 11:54am Hx Pneumococcal Vaccination No 03/31/15 11:54am Hx Influenza Vaccination No 03/31/15 11:54am Vital Signs Acute Vital Signs Vital Response Date/Time Temperature (Fahrenheit) 97.6 deg F (96.8 - 99.1) 09/20/2016 11:35pm Temperature (Calculated Celsius) 36.32990 degrees C (36.0 - 37.3) 09/20/2016 11:35pm Pulse Rate (adult) 52 bpm (60 - 100) 09/21/2016 2:03am Respiratory Rate 16 breaths/min (10 - 20) 09/21/2016 2:03am O2 Sat by Pulse Oximetry 96 % (90 - 100) 09/21/2016 2:03am Blood Pressure 151/74 mm Hg 09/21/2016 2:03am Height (Feet) 6 feet 09/20/2016 11:35pm Height (Inches) 2.00 inches 09/20/2016 11:35pm Weight (Kilograms) 85.800 kg 09/20/2016 11:35pm Body Mass Index (BMI) 24.0 09/20/2016 11:35pm Results Laboratory Results Test Name Result Units Flags Reference Collection Date/Time Result Date/ Time Comments White Blood Count 7.6 T/MM3 4.5-11.0 09/20/2016 11:56pm 09/21/2016 12: 11am Red Blood Count 4.42 M/MM3 L 4.50-5.90 09/20/2016 11:56pm 09/21/2016 12: 11am Hemoglobin 14.5 GM/DL 13.5-17.5 09/20/2016 11:56pm 09/21/2016 12:11am Hematocrit 41.7 % 41-53 09/20/2016 11:56pm 09/21/2016 12:11am Mean Corpuscular Volume 94.3 UM3 80-100 09/20/2016 11:56pm 09/21/2016 12:11am Mean Corpuscular Hemoglobin 32.8 UUG 26-34 09/20/2016 11:56pm 2016 12:11am Mean Corpuscular Hemoglobin Concent 34.8 GM/DL 31-37 09/20/2016 11:56pm 09/21/2016 12:11am RDW Standard Deviation 42.9 FL 36.9-50.2 09/20/2016 11:56pm 09/21/2016 12:11am Platelet Count 191 T/MM3 130-400 09/20/2016 11:56pm 09/21/2016 12:11am Mean Platelet Volume 10.3 UM3 9.4-12.4 09/20/2016 11:56pm 09/21/2016 12 :11am Neutrophils (%) (Auto) 53.1 % 33-66 09/20/2016 11:56pm 09/21/2016 12: 11am Lymphocytes (%) (Auto) 34.7 % 23-45 09/20/2016 11:56pm 09/21/2016 12: 11am Monocytes (%) (Auto) 9.3 % H 0-9.0 09/20/2016 11:56pm 09/21/2016 12: 11am Eosinophils (%) (Auto) 2.4 % 0-4 09/20/2016 11:56pm 09/21/2016 12:11am Basophils (%) (Auto) 0.4 % 0-2 09/20/2016 11:56pm 09/21/2016 12:11am Immature Granulocyte % (Auto) 0.1 % 0.0-0.5 09/20/2016 11:56pm 2016 12:11am Absolute Neutrophils (auto) 4.0 T/MM3 1.8-7.7 09/20/2016 11:56pm 2016 12:11am Absolute Lymphocytes (auto) 2.6 T/MM3 1-4.8 09/20/2016 11:56pm 2016 12:11am Absolute Monocytes (auto) 0.7 T/MM3 0-0.8 09/20/2016 11:56pm 2016 12:11am Absolute Eosinophils (auto) 0.2 T/MM3 0-0.5 09/20/2016 11:56pm 2016 12:11am Absolute Basophils (auto) 0.0 T/MM3 0-0.2 09/20/2016 11:56pm 2016 12:11am Absolute Immature Granulocyte (auto 0.01 T/MM3 0.00-0.03 09/20/2016 11: 56pm 09/21/2016 12:11am Icterus Index < 2 0-7 09/20/2016 11:56pm 09/21/2016 12:21am Chemistry Specimen Hemolysis < 15 0-25 09/20/2016 11:56pm 09/21/2016 12:21am 0-25: Specimen Exhibited No Hemolysis. Turbidity < 20 0-20 09/20/2016 11:56pm 09/21/2016 12:21am Sodium Level 144 MEQ/L 134-144 09/20/2016 11:56pm 09/21/2016 12:21am Potassium Level 3.8 MEQ/L 3.6-5 09/20/2016 11:56pm 09/21/2016 12:21am Chloride Level 107 MEQ/L 98-107 09/20/2016 11:56pm 09/21/2016 12:21am Carbon Dioxide Level 26 MEQ/L 22-30 09/20/2016 11:56pm 09/21/2016 12: 21am Anion Gap 11 MEQ/L 5-15 09/20/2016 11:56pm 09/21/2016 12:21am Blood Urea Nitrogen 19.0 MG/DL 9-20 09/20/2016 11:56pm 09/21/2016 12: 21am Creatinine 0.9 MG/DL 0.8-1.5 09/20/2016 11:56pm 09/21/2016 12:21am BUN/Creatinine Ratio 21 RATIO 6-26 09/20/2016 11:56pm 09/21/2016 12: 21am Glomerular Filtration Rate Calc 82 09/20/2016 11:56pm 09/21/2016 12 :21am Glucose Level 88 MG/DL 75-110 09/20/2016 11:56pm 09/21/2016 12:21am Calculated Osmolality 278 MOSM/KG 261-280 09/20/2016 11:56pm 2016 12:21am Calcium Level 9.3 MG/DL 8.4-10.2 09/20/2016 11:56pm 09/21/2016 12:21am Total Bilirubin 0.80 MG/DL 0.20-1.30 09/20/2016 11:56pm 09/21/2016 12: 21am Alkaline Phosphatase 84 U/L 38-126 09/20/2016 11:56pm 09/21/2016 12: 21am Total Protein 7.6 G/DL 6.3-8.2 09/20/2016 11:56pm 09/21/2016 12:21am Albumin 4.3 G/DL 3.5-5.0 09/20/2016 11:56pm 09/21/2016 12:21am Globulin 3.3 G/DL 2.4-3.6 09/20/2016 11:56pm 09/21/2016 12:21am Albumin/Globulin Ratio 1.3 RATIO 1.1-2.2 09/20/2016 11:56pm 09/21/2016 12:21am Aspartate Amino Transf (AST/SGOT) 29 U/L 17-59 09/20/2016 11:56pm 09/21 12:21am Alanine Aminotransferase (ALT/SGPT) 34 U/L 21-72 09/20/2016 11:56pm 12:21am Troponin I < 0.012 ng/ml 0-0.12 09/20/2016 11:56pm 09/21/2016 12:32am Troponin values with a difference of 55% increase from orginal troponin value represent a true biological DELTA value. (%increase Calc=Orginal Troponin value, divided by subsequent Troponin value, multiplied by 100) Urine Collection Type CLEANCATCH-MIDSTREAM 09/20/2016 11:57pm 09/21 12:10am Urine Color YELLOW YELLOW 09/20/2016 11:57pm 09/21/2016 12:10am Urine Turbidity CLEAR CLEAR 09/20/2016 11:57pm 09/21/2016 12:10am Urine Specific [place] 1.015 1.015-1.025 09/20/2016 11:57pm 2016 12:10am Urine pH 5.0 5.0-8.0 09/20/2016 11:57pm 09/21/2016 12:10am Urine Leukocyte Esterase NEGATIVE NEGATIVE 09/20/2016 11:57pm 2016 12:10am Urine Nitrite NEGATIVE NEGATIVE 09/20/2016 11:57pm 09/21/2016 12: 10am Urine Protein NEGATIVE NEGATIVE 09/20/2016 11:57pm 09/21/2016 12: 10am Urine Glucose (UA) NEGATIVE NEGATIVE 09/20/2016 11:57pm 09/21/2016 12 :10am Urine Ketones NEGATIVE NEGATIVE 09/20/2016 11:57pm 09/21/2016 12: 10am Urine Urobilinogen 0.2 EU/DL NORMAL 09/20/2016 11:57pm 09/21/2016 12: 10am Urine Bilirubin NEGATIVE NEGATIVE 09/20/2016 11:57pm 09/21/2016 12: 10am Urine Blood NEGATIVE NEGATIVE 09/20/2016 11:57pm 09/21/2016 12:10am Urinalysis Comment MICROSCOPIC NOT IND. 09/20/2016 11:57pm 2016 12:10am Procedures No known history of procedures. Encounters Encounter Location Arrival/Admit Date Discharge/Depart Date Attending Provider Departed Emergency Room [facility] 09/20/16 11:28pm 09/21/16 2: 03am BLANE SÁNCHEZ MD Recent Diagnosis
--- NOTE | 2016-09-29 09:07 | NUR ---
HX AWOKE AT 0715 WITH FRONTAL WEISS & TINGLING OF L ARM WHICH LASTED 15 MINS. WEISS CONTINUES. NEUROS INTACT
--- OUTSIDE RECORDS SUMMARY | 2016-09-29 09:08 | XMS REPORT | Continuity of Care Document ---
Author Author [facility] Organization [facility] Address Unknown Phone Unavailable Support Name Relationship Address Phone TERE AVITIA MD Caregiver [address] [place] [phone] JUAN GARCIA MD Caregiver [address] [place] [phone] KATHRYN KUMAR Next Of Kin [address] [place] [address] Insurance Providers Payer Name Policy Number Subscriber Name Relationship Medicare [id number] Manny Kumar 18 Self Other A Insurance [id number] Manny Kumar 18 Self Advance Directives Directive Response Recorded Date/Time Advanced Directives Type None 08/23/14 1:23pm Problems Medical Problems Problem Onset Date Status Headache Unknown Active Elevated blood pressure Unknown Active Headache Unknown Active Medications Medication Dose Route Sig Days/Qty Instructions Order Date Discontinued Date Status Aspirin 81 Mg PO DAILY 11/04/12 12/27/12 Discontinued Fish Oil/[place]ox[place]ackie-3 Fatty Acids 1 Cap PO DAILY 12/27/12 Active Multivitamins 1 Tab PO DAILY 12/27/12 Active Nitroglycerin 0.4 Mg SL NEEDED 12/27/12 Active Glucosamine/D3/Boswellia Malika 1 Each PO DAILY 12/27/12 Active Ascorbic Acid 1,000 Mg PO DAILY 12/27/12 Active Magnesium Unknown Dose PO DAILY 12/30/12 Active Cholecalciferol (Vitamin D3) 5,000 Unit PO DAILY 12/30/12 Active Vitamin O46-Gdomascje Factor 500 Mcg PO DAILY 12/30/12 Active Thioctic Acid 100 Mg PO DAILY 12/30/12 Active Lisinopril 10 Mg PO DAILY 60 Days 08/23/14 Active [place] Oil/Coxsackie-3 Fatty Acids 1 Cap PO DAILY 08/23/14 [...] F (96.8 - 99.1) Temperature (Calculated Celsius) 35.51064 degrees C (36.0 - 37.3) Pulse Rate [...] 26, 2012 11:58pm LAB TEST FORM REQUEST [id number] - Lymphocytes # (Auto) August 23, 2014 [...] 12:53pm < 0.012 ng/ml 0-0.12 FAX TO [phone] Turbidity August 23, 2014 2:05pm < 20 0-20 VLDL Cholesterol March 12, 2009 7:35am 12.6 MG/DL N 0-28 White Blood Count August 23, 2014 2:05pm 6.1 T/MM3 N 4.5-11.0 Procedures No known history of procedures. Encounters Encounter Location Date/Time Departed Emergency Room [facility] 08/23/14 1:19pm Recent Diagnosis
--- OUTSIDE RECORDS SUMMARY | 2016-09-29 09:08 | XMS REPORT | Continuity of Care Document ---
Author Author [facility] Organization [facility] Address Unknown Phone Unavailable Allergies Active Description Code Type Severity Reaction Onset Reported/Identified Relationship to Patient Clinical Status Yes No Known Medication Allergies NKMA N/A N/A 01/14/2015 Medications Problems Procedures Results Encounters ACCT No. Visit Date/Time Discharge Status Pt. Type Provider Facility Loc./Unit Complaint [id number] 01/29/2015 14:19:00 2014 23:59:00 DIS Outpatient Salome Alston [facility] ENT RCK EARS [id number] 01/14/2015 15:28:00 2014 23:59:00 DIS Outpatient Padmini Daniels [facility] Audio Padmini - Medicare - Jennifer [id number] 01/14/2015 12:37:00 2014 23:59:00 DIS Outpatient Macario Rodriguez [facility] ENT EAR ACHES
--- NOTE | 2016-09-29 09:09 | NUR ---
TO CT PER CART
--- NOTE | 2016-09-29 09:15 | NUR ---
RETURNED FROM CT
[2016-09-29] MEDS ORDERED: LISI-621 PO (09:19)
--- NOTE | 2016-09-29 09:27 | DI ---
Indication: ITS.REASON: slurred speech PROCEDURE: CT HEAD W/O CONTRAST: Encounter: Initial Comparison: September 21, 2016 Technique: Axial CT images through the head were performed without contrast. Iterative Reconstruction dose reducing technique was utilized. FINDINGS: The ventricles are of normal size, shape, and contour for the patient's age. There are scattered areas of low attenuation in the white matter which most likely represent changes from chronic microvascular ischemia. The brainstem, cerebellum, and cerebral hemispheres otherwise have a normal morphology and CT attenuation. There is no evidence of midline displacement. No hemorrhage, signs of acute territorial stroke, mass effect, mass lesions, or edema is evident. The visualized portions of the skull base, midface, and calvarium demonstrate no abnormality. The paranasal sinuses are well aerated and free of significant disease. The tympanic and mastoid cavities appear normal. IMPRESSION: No acute intracranial abnormality or hemorrhage. .
[2016-09-29] MEDS ORDERED: NORMAL SALINE 1,000 ML IV ONE (10:07)
[2016-09-29] MEDS ORDERED: ASPIRIN 325 MG TABLET PO ONE (10:15)
[2016-09-29] MEDS ORDERED: LISINOPRIL 20 MG TABLET PO SCH (10:16)
--- NOTE | 2016-09-29 10:20 | NUR ---
ACTIVITY AMB TO BR TO VOID
--- NOTE | 2016-09-29 10:20 | NUR ---
EKG MACHINE BUSY.
[2016-09-29 10:27] LABS: BASOPHILS % (AUTO) 0.5 % (0-2); EOSINOPHILS # (AUTO) 0.1 T/MM3 (0-0.5); EOSINOPHILS % (AUTO) 1.2 % (0-4); HCT - HEMATOCRIT 42.5 % (41-53); HGB - HEMOGLOBIN 14.3 GM/DL (13.5-17.5); IMMATURE GRANULOCYTE # (AUTO) 0.01 T/MM3 (0.00-0.03); IMMATURE GRANULOCYTE % (AUTO) 0.2 % (0.0-0.5); LYMPHOCYTES # (AUTO) 1.6 T/MM3 (1-4.8); MEAN CORPUSCULAR HGB 32.1 UUG (26-34); MEAN CORPUSCULAR HGB CONC(MCHC 33.6 GM/DL (31-37); MEAN CORPUSCULAR VOLUME 95.3 UM3 (80-100); MEAN PLATELET VOLUME 10.2 UM3 (9.4-12.4); MONOCYTES # (AUTO) 0.5 T/MM3 (0-0.8); MONOCYTES % (AUTO) 8.9 % (0-9.0); NEUTROPHILS #(AUTO)-ABSOLUTE 3.6 T/MM3 (1.8-7.7); NEUTROPHILS % (AUTO) 62.2 % (33-66); RED BLOOD COUNT 4.46 M/MM3 (4.50-5.90); WBC - WHITE BLOOD COUNT 5.8 T/MM3 (4.5-11.0)
[2016-09-29 10:37] LABS: ALBUMIN 4.1 G/DL (3.5-5.0); ALBUMIN/GLOBULIN RATIO 1.4 RATIO (1.1-2.2); ALKALINE PHOSPHATASE 62 U/L (38-126); ALT (SGPT) 35 U/L (21-72); ANION GAP 10 MEQ/L (5-15); AST (SGOT) 21 U/L (17-59); BUN/CREATININE RATIO 19 RATIO (6-26); CALCIUM 9.1 MG/DL (8.4-10.2); CHLORIDE 108 MEQ/L (98-107); CO2 - CARBON DIOXIDE 27 MEQ/L (22-30); GLOMERULAR FILTRATION RATE 73; GLUCOSE 94 MG/DL (75-110); POTASSIUM 4.3 MEQ/L (3.6-5); SODIUM 145 MEQ/L (134-144); TOTAL PROTEIN 7.1 G/DL (6.3-8.2)
[2016-09-29 10:47] LABS: INR 1.09 (0.76-1.04); PROTHROMBIN TIME 11.9 SEC (9.31-12.49)
--- NOTE | 2016-09-29 11:53 | ERPDOC ---
Departure Disposition Decision Date: Sep 29, 2016 Disposition Decision Time: 12:00 Disposition: 01 DISCHARGED HOME, SELF-CARE Impression Impression Impression: Primary Impression: TIA (transient ischemic attack) Severity: Moderate Condition: Stable Seen By: Physician only Referrals: SARAN ISLAS MD (Family) Patient Instructions: Tiagabine (By mouth), Transient Ischemic Attack (ED) Problems/Meds/Labs Reviewed?: Yes Medications reviewed and manag: Yes Additional Instructions: Aspirin 81 mg daily. Discuss the most appropriate medication with your primary care provider. Follow up care ordered?: Yes Mental Status: Alert, Oriented Scripts Oxycodone HCl/Acetaminophen (Percocet 5-325 mg Tablet) 5-325 Tablet 1 TAB PO BID for PAIN, #10 TAB Take 1 tablet, by mouth, 4 times a day. Prov: CAROLANN RAMIREZ MD 09/29/16 HPI - Headache General Chief Complaint: Headache Stated Complaint: PAIN LET SIDE HEAD, NASE[place], UNSTABLE Time Seen by Provider: 09:03 HPI - Headache Initial Comments 76-year-old gentleman with onset of headache and confusion this morning. He woke at 7:30 with some confusion, felt as if he had lost coordination. This resolved very shortly after getting up, but the headache stayed. He's had no vomiting, but has had nausea. No diarrhea. He still feels generally weak and shaky. He had some numbness in his fingers bilateral when he first awoke, that has also resolved. No previous history of TIA or stroke Allergies: Coded Allergies: Iodinated Contrast Media - Oral and (Verified Allergy, Unknown, HEADACHE, BP CHANGES, 09/29/16) Past History Patient Surgical History 1. Left tympanostomy tube placement--2014 by an ENT in [place]. 2. Colonoscopy with polypectomy--04/01/[address] Saran Islas. 3. 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 Gela Pantoja. 4. Upper blepharoplasty--12/30/[address] Gela Pantoja. 5. Right cataract removal--2010. 6. Hemorrhoidectomy--09/15/[address] David Zaldivar. 7. Total colonoscopy--08/13/[address] David Zaldivar. 8. Right knee arthroscopy with partial medial meniscectomy--09/13/00. 9. Cardiac catheterization--03/[address] Danilo Lees. Catheterization was reportedly normal. 10. Removal of benign cyst of the back of the neck--age 38. Past Medical History Metabolic: hypertension Musculoskeletal: osteoarthritis Surgical History General: colonoscopy Vaccines Hx Influenza Vaccination: No Hx Pneumococcal Vaccination: No Social History Does patient use chewing tobac: No Second Hand Exposure: No Substance Use Type: does not use Alcohol Intake: none Record Review Pertinent history updated: Yes Review of Systems GI Upper Abdomen: see HPI Musculoskeletal General: see HPI Neurological General: see HPI All other Systems All Other Systems: Reviewed and Negative Physical Exam General General Nourishment: well nourished, well developed, no acute distress General Body Habitus: well groomed Vitals and Pain First Documented Vital Signs Date Time Temp Pulse Resp B/P Pulse Ox O2 Delivery O2 Flow Rate FiO2 09/29/16 09:00 97.9 64 18 159/71 99 Room Air Weight: Kilograms: 85.400 Height (feet): 6 Height (inches): 2.00 Triage Pain Scale: Normal Exams: Head: Normocephalic w/o trauma Eyes: Pupils are PERRLA w/ EOMI, No scleral icterus, irritation, or foreign bodies noted ENMT: No facial trauma, nasal exudates, pharyngeal erythema, or exudates are noted Neck: Full range of motion, without adenopathy, JVD, bruits or thyromegaly Chest/Resp: Clear all contreras, with good airflow, and symmetry bilaterally CV: Regular rate and rhythm, without murmur or gallop, Pulses 2+ all extremities, capillary refill, <2 seconds all ext., no pedal edema noted Abdomen: Bowel sounds positive, soft, non-tender, non-distended, no hepatosplenomegaly, masses or bruits noted Musculoskeletal: No tenderness, or deformity noted, good range of motion, all extremities Neurologic: Patient is alert, and oriented, cranial nerves, motor/sensory/ cerebellar, exams w/o gross deficits, to observation Psychiatric: Patient exhibits, appropriate attention, emotion and affect Neurologic (brief) Neurological Brief: FOUND: CN w/o gross def to obs, DTR 2/4 all extremities, gait w/o gross def to obs, motor-no gross deficits, sensory-no gross deficits, NOT FOUND: ataxia Psychiatric (brief) Psychiatric Brief: FOUND: alert, attentive, normal affect, oriented Differential Diagnoses Considering: Carbon Monoxide Toxicity, Cerebral Hemorrhage, CVA - Thrombotic, CVA - Hemorrhagic, Encephalitis, Headache, Headache - Migraine, Headache - Tension/Muscle, Other (TIA) Progress Results/Orders Orders Procedure Category Date Status Time Ct Head W/O Contrast CT 09/29/16 Resulted 09:03 Oxygen Administration EDM 09/29/16 Transmitted 10:07 Iv Lock (Ed Only) EDM 09/29/16 Transmitted 10:07 Cbc W/Auto LAB 09/29/16 Complete Diff-Reflex Manual 10:07 Cmp - Comprehensive LAB 09/29/16 Complete Metabolic 10:07 Troponin I W LAB 09/29/16 Complete Hemolysis Index 10:07 INR LAB 09/29/16 Complete 10:07 EKG EKG 09/29/16 Taken 10:07 Normal Saline (Normal PHA 09/29/16 Complete Saline Iv) 10:07 Measure Vital Signs ALFONZO 09/29/16 In Process 10:07 Aspirin (Asa) PHA 09/29/16 Complete 10:15 Tsh - Thyroid Stim LAB 09/29/16 Complete Hormone Lisinopril (Prinivil) PHA 09/29/16 In Process 10:16 Lab Results Laboratory Tests Test 09/29/16 10:22 White Blood Count 5.8T/MM3 Red Blood Count 4.46M/MM3 Hemoglobin 14.3GM/DL Hematocrit 42.5% Mean Corpuscular Volume 95.3UM3 Mean Corpuscular Hemoglobin 32.1UUG Mean Corpuscular Hemoglobin Concent 33.6GM/DL RDW Standard Deviation 44.4FL Platelet Count 180T/MM3 Mean Platelet Volume 10.2UM3 Immature Granulocyte % (Auto) 0.2% Neutrophils (%) (Auto) 62.2% Lymphocytes (%) (Auto) 27.0% Monocytes (%) (Auto) 8.9% Eosinophils (%) (Auto) 1.2% Basophils (%) (Auto) 0.5% Absolute Immature Granulocyte (auto 0.01T/MM3 Absolute Neutrophils (auto) 3.6T/MM3 Absolute Lymphocytes (auto) 1.6T/MM3 Absolute Monocytes (auto) 0.5T/MM3 Absolute Eosinophils (auto) 0.1T/MM3 Absolute Basophils (auto) 0.0T/MM3 Prothromb Time International Ratio 1.09 Turbidity < 20 Sodium Level 145MEQ/L Potassium Level 4.3MEQ/L Chloride Level 108MEQ/L Carbon Dioxide Level 27MEQ/L Anion Gap 10MEQ/L Blood Urea Nitrogen 19.0MG/DL Creatinine 1.0MG/DL Glomerular Filtration Rate Calc 73 BUN/Creatinine Ratio 19RATIO Glucose Level 94MG/DL Calculated Osmolality 281MOSM/KG Calcium Level 9.1MG/DL Total Bilirubin 1.00MG/DL Icterus Index < 2 Aspartate Amino Transf (AST/SGOT) 21U/L Alanine Aminotransferase (ALT/SGPT) 35U/L Alkaline Phosphatase 62U/L Troponin I < 0.012ng/ml Total Protein 7.1G/DL Albumin 4.1G/DL Globulin 3.0G/DL Albumin/Globulin Ratio 1.4RATIO Thyroid Stimulating Hormone (TSH) 1.36MIU/L Chemistry Specimen Hemolysis < 15 Medications Current ED Medications Sodium Chloride (Normal Saline IV) 1,000 ml @ 1,000 mls/hr Q1H ONCE IV Last administered on 09/29/16 10:54; Start 09/29/16 at 10:07; Stop 09/29/16 at 11:06 ; Status DC Aspirin (ASA) 325 mg O ONCE PO Last administered on 09/29/16 10:55; Start at 10:15; Stop 09/29/16 at 10:17; Status DC Lisinopril (Prinivil) 20 mg DAILY PO Last administered on 09/29/16 10:55; Start 09/29/16 at 10:16 Progress Progress Labs returned appropriate, TSH is still pending and will be a while. Differential diagnosis with center around migraine headache or TIA. He would like to cover himself in the event there was a TIA, which I think is very appropriate. We discussed baby aspirin versus Plavix. He'll start on a baby aspirin daily, 81 mg until he can see Dr. Islas on Sunday to discuss possible medication changes. Recommended he also have an ultrasound of carotid and that he discuss the relevance of getting a CT scan of vertebral arteries in the neck. He'll settle this with his primary care provider. CAROLANN RAMIREZ MD Sep 29, 2016 11:53
[2016-09-29] MEDS ORDERED: OXYC1TAB8 PO (12:02)
--- NOTE | 2016-09-29 12:08 | NUR ---
DISMISSAL VS & MONITOR STABLE. CONTINUES WITH SOME WEISS. DISCHARGED AMB
[2016-09-29 12:18] VITALS: BP 173/73; PULSE 56; RESP 26; TEMP 97.7; O2SAT 98
== END 2016-09-29 12:18 | disposition home or self-care (01) ==
LOC: ED 08:56
DX: G45.9 Transient cerebral ischemic attack, unspecified (principal); I10 Essential (primary) hypertension
CPT/HCPCS: 70450; 80053; 84443; 84484; 85025; 85610; 93005; 96360; 99284; A9270; J7030